=== PATIENT | female | born 1985 | race Caucasian/White ===

== ENCOUNTER 2019-06-07 19:07 | Inpatient (IN) | payer MEDICAID ==
[2019-06-07] MEDS ORDERED: Ondansetron 4 MG Tab.DIS PO PRN (20:30)
[2019-06-07] MEDS ORDERED: Zolpidem 10 MG Tab PO PRN (20:30)
[2019-06-07] MEDS ORDERED: Acetaminophen 325 MG Tab PO PRN (20:30)
--- NOTE | 2019-06-07 20:30 | PCM.LDHP ---
L&D History of Present Illness - General Date of Service: 06/07/19 Admit Problem/Dx: Admission Diagnosis/Problem Admission Diagnosis/Problem Source of Information: Patient History Limitations: Reports: No Limitations - History of Present Illness Introduction:: Patient is a 33 y/o at 36 5/7 wks who presents for concerns of worsening contractions. Present in back / hips. Not able to rest much throughout the day. 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: , Therapeutic : 3 Para: 1 LMP (Approximate): - Past Surgical History Female Surgical History: Reports: Section Social & Family History - Tobacco Use Smoking Status *Q: Former Smoker - Alcohol Use Alcohol Use History: No - Recreational Drug Use Recreational Drug Use: No H&P Review of Systems - Review of Systems: Review Of Systems: See Below General: Reports: Fatigue Pulmonary: Reports: No Symptoms Cardiovascular: Reports: No Symptoms Gastrointestinal: Reports: Abdominal Pain (contractions) Genitourinary: Reports: No Symptoms Musculoskeletal: Reports: Back Pain, Other (pelvic pain) Psychiatric: Reports: No Symptoms Neurological: Reports: No Symptoms L&D Exam - Exam Exam: See Below - OB Specific Contraction Intensity: Mild Movement: Active Heart Tones: Present Heart Tones per Min: 145 Heart Rate (FHR) Variability: Moderate (6-25 bmp) Presentation: Vertex - Gupta Score Gupta Score Cervix Position: Posterior Gupta Score Consistency: Medium Gupta Score Effacement: 51-70% Gupta Score Dilation: 1-2 cm Gupta Score 's Station: -2 Gupta Score Total: 5 - Exam General: Alert, Oriented, Cooperative Lungs: Clear to Auscultation, Normal Respiratory Effort Cardiovascular: Regular Rate, Regular Rhythm GI/Abdominal Exam: Soft, Non-Tender Genitourinary: Normal external exam Back Exam: Normal Inspection Extremities: Normal Inspection Skin: Warm, Dry, Intact - Problem List (1) 36 weeks gestation of SNOMED Code(s): 84046183 ICD Code: Z3A.36 - 36 WEEKS GESTATION OF Status: Acute Current Visit: Yes (2) History of SNOMED Code(s): 400105892 ICD Code: Z98.891 - HISTORY OF UTERINE SCAR FROM PREVIOUS SURGERY Status: Acute Current Visit: Yes (3) Gestational hypertension SNOMED Code(s): 604366715 ICD Code: O13.9 - GESTATIONAL HTN W/O SIGNIFICANT PROTEINURIA, UNSP TRIMESTER Status: Acute Current Visit: Yes Qualifiers: Trimester: third trimester Qualified Code(s): O13.3 - Gestational [ -induced] hypertension without significant proteinuria, third trimester Problem List Initiated/Reviewed/Updated: Yes Assessment/Plan Comment:: Patient with SVE similar to exam this AM. Will plan on keeping overnight for extended triage as lives several hours from [place]. Patient previously interested in TOLAC, but now less certain. Mostly worried about pain. Will given dose of Flexeril currently for discomfort. If pain continues without cervical change can consider IM morphine/phenergan. Labs done early this AM and so not to be repeated currently. Family agrees with plan. Shannan Reza MD
[2019-06-07] MEDS ORDERED: Cyclobenzaprine 10 MG Tab PO PRN (20:36)
[2019-06-07] MEDS ORDERED: Promethazine 25 MG/ML SDV IM ONE (22:40)
[2019-06-07] MEDS ORDERED: Morphine 10 MG/ML Syringe IVPUSH ONE (22:40)
[2019-06-07] MEDS ORDERED: Morphine 10 MG/ML Syringe IM ONE (23:10)
[2019-06-07] MEDS ORDERED: Morphine 4 MG/ML Syringe ONE (23:27)
[2019-06-07] MEDS ORDERED: Morphine 4 MG/ML Syringe IM ONE (23:30)
[2019-06-07] MEDS ORDERED: Morphine PF 10 MG/10 ML SDV IM ONE (23:30)
[2019-06-08] MEDS ORDERED: Metoclopramide 10 MG/2 ML SDV IVPUSH ONE (01:58)
[2019-06-08] MEDS ORDERED: Sodium Chloride 0.9% 10 ML Syringe FLUSH PRN (01:58)
[2019-06-08] MEDS ORDERED: ceFAZolin 2 GM in Premix Bag 1 BAG IV ONE (01:58)
[2019-06-08] MEDS ORDERED: Citric Acid/Sodium Citrate Solution 30 ML Cup PO ONE (01:58)
[2019-06-08] MEDS ORDERED: Nalbuphine 10 MG/1 ML Vial IVPUSH PRN (01:58)
[2019-06-08] MEDS ORDERED: Oxytocin/Lactated Ringers 10 UNIT/1,000 ML BAG IV SCH (02:00)
[2019-06-08] MEDS ORDERED: Lactated Ringers 1,000 ML IV SCH (02:00)
--- NOTE | 2019-06-08 02:03 | PCM.SN ---
- Free Text/Narrative Note: 0200 Patient with continued complaints of contractions. Appears more in early labor. Exam almost impossible given patient discomfort. Reviewed options. Does not want to do a trial of labor. Will move forward with [facility] Shannan Reza MD
--- NOTE | 2019-06-08 02:11 | PCM.OPNOTE ---
- General Post-Op/Procedure Note Date of Surgery/Procedure: 06/08/19 Operative Procedure(s): Repeat Findings: Keloid scar noted on abdomen at site of prior . Minimal scar tissue between the rectus and fascia. When attempting to enter the peritoneum it was noted there was dense adhesions between the uterus and anterior/abdominal wall along the right and also center/almost fundal region. Minimal scar tissue noted between bladder and ARIAS. Baby girl delivered from vertex presentation with APGARS of 6 & 9. Weight 6 lbs 5 oz. Uterus not able to be exteriorized. After hysterotomy closed it was noted the incision traveled is an almost diagonal fashion up towards mid position of uterus on patient's left. This was thought to have occurred due to tethering of uterus to anterior abdominal wall. Left ovary appeared normal, but not able to visualize right ovary or fallopian tube. Pre Op Diagnosis: 36 6/7 wks gestation. Early labor (change from 1 to 3 cm). Hx of prior . Declined TOLAC. Gestational HTN Post-Op Diagnosis: Same - Given findings at time of surgery would recommend early term delivery in subsequent pregnancies Anesthesia Technique: Spinal Primary Surgeon: Shannan Reza Secondary Surgeon: Bhavna Olivo Anesthesia Provider: Obdulio Junior Reason Band And Cuff Cutter Was Necessary: BMI of patient. Speed/safety of procedure Pathology: Cord blood collected. Placenta discarded. Fluid Replacement, Intraop: 1,600 Output, Urine Amount: 125 EBL in mLs: 700 Complications: None Condition: Good Free Text/Narrative:: The risks, benefits, indications, potential complications, and alternatives were explained to the patient and informed consent obtained. After induction of anesthesia, the patient was placed in a supine position and then draped and prepped in the usual sterile manner. A Pfannenstiel incision was made and carried down through the subcutaneous tissue to the fascia. Fascial incision was made and extended transversely. The fascia was from the underlying rectus tissue superiorly and inferiorly. The peritoneum was identified and entered. Peritoneal incision initially could not be extended due to dense adhesions between the uterus and anterior abdominal wall. These were taken down partially on the patient's right with sharp dissection and fundally with cautery. This allowed slightly more extension of peritoneal incision, but still somewhat tight. Cautery then used to slightly incise rectus muscles bilaterally. After this adequate amount of space thought to be had for delivery. The utero-vesical peritoneal reflection was incised transversely and the bladder flap was bluntly freed from the lower uterine segment. A transverse uterine incision was made sharply with a scalpel and extended bluntly in a cephalocaudad direction. A baby girl was delivered from a vertex presentation with APGARS as above. After the umbilical cord was clamped and cut cord blood was obtained for evaluation. The placenta was removed intact and appeared normal. The uterus was not able to be exteriorized due to adhesive disease. The uterine incision was closed with three separate running locked sutures of 0 Vicryl. As noted in findings hysterotomy did extend upward on patient's left. Area where uterus was from anterior wall somewhat abraided and this was also closed with an 0 vicryl in a figure of eight fashion. The infracolic gutters were cleared of blood clots. Bry-seal placed along incision lines. The fascia was then reapproximated with running sutures of 0 Vicryl. The subcutaneous tissue was irrigated with sterile warm normal saline, hemostasis obtained with cautery. This layer was closed with a running 0 vicryl. Patient' s prior keloid scar then excised sharply with a scalpel. The skin was reapproximated with running Subcuticular 4-0 monocryl sutures. Instrument, sponge, and needle counts were correct prior the abdominal closure and at the conclusion of the case.
[2019-06-08] MEDS ORDERED: Morphine PF 10 MG/10 ML SDV ONE (02:16)
[2019-06-08] MEDS ORDERED: Oxytocin 10 Units/1 ML SDV ONE (02:16)
[2019-06-08] MEDS ORDERED: ceFAZolin 1 GM Vial ONE (02:16)
[2019-06-08] MEDS ORDERED: ePHEDrine/Normal Saline 25 MG/5 ML Syringe ONE (03:08)
[2019-06-08] MEDS ORDERED: Ketorolac 30 MG/ML SDV ONE ×2 (03:13→22:18)
--- NOTE | 2019-06-08 03:14 | PCM.PREANE ---
Preanesthetic Assessment - Procedure Proposed Procedure: Urgent - Anesthesia/Transfusion/Family Hx Anesthesia History: Prior Anesthesia Without Reaction Family History of Anesthesia Reaction: No Transfusion History: No Prior Transfusion(s) Anesthesia/Transfusion Comment: No previous difficulties with anesthesia or with intubation per patient - Review of Systems General: No Symptoms Pulmonary: No Symptoms Cardiovascular: No Symptoms Gastrointestinal: No Symptoms Neurological: No Symptoms Other: Reports: None - Physical Assessment NPO Status Date: 06/08/19 (full stomach) ASA Class: 1E Mental Status: Alert & Oriented x3 Airway Class: Mallampati = 2 Dentition: Reports: Normal Dentition Thyro-Mental Finger Breadths: 3 Mouth Opening Finger Breadths: 3 ROM/Head Extension: Full Lungs: Clear to Auscultation, Normal Respiratory Effort Cardiovascular: Regular Rate, Regular Rhythm - Allergies Allergies/Adverse Reactions: Allergies Allergy/AdvReac Type Severity Reaction Status Date / Time No Known Allergies Allergy Verified 06/07/19 00:16 - Blood Blood Available: Yes - Anesthesia Plan Pre-Op Medication Ordered: None - Acknowledgements Anesthesia Type Planned: Spinal, MAC Pt an Appropriate Candidate for the Planned Anesthesia: Yes Alternatives and Risks of Anesthesia Discussed w Pt/Guardian: Yes Pt/Guardian Understands and Agrees with Anesthesia Plan: Yes 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: , Therapeutic - Past Surgical History Female Surgical History: Reports: Section - SUBSTANCE USE Smoking Status *Q: Former Smoker Recreational Drug Use History: No - HOME MEDS Home Medications: Home Meds Mv-Mn/Iron/FA/Herbal/Digestive [ One Tablet] 1 each PO DAILY 06/07/19 [ History] Omeprazole Magnesium [Prilosec Otc] 20 mg PO DAILY 06/07/19 [History] - CURRENT (IN HOUSE) MEDS Current Meds: Current Medications Acetaminophen (Tylenol) 650 mg PO Q4H PRN PRN Reason: Pain (mild 1-3) Cyclobenzaprine HCl (Flexeril) 10 mg PO BEDTIME PRN PRN Reason: pain Last Admin: 06/07/19 21:13 Dose: 10 mg Lactated Ringer's (Ringers, Lactated) 1,000 mls @ 125 mls/hr IV ASDIRECTED JANA Oxytocin/Lactated Ringer's (Pitocin In Lr 10 Units/1,000 Ml) 10 unit in 1,000 mls @ 100 mls/hr IV ASDIRECTED JANA; Protocol Nalbuphine HCl (Nubain) 10 mg IVPUSH Q2H PRN PRN Reason: Pain Ondansetron HCl (Zofran Odt) 4 mg PO Q4H PRN PRN Reason: Nausea/Vomiting Sodium Chloride (Saline Flush) 10 ml FLUSH ASDIRECTED PRN PRN Reason: Keep Vein Open Zolpidem Tartrate (Ambien) 10 mg PO ONETIME PRN PRN Reason: Insomnia Discontinued Medications Cefazolin Sodium (Ancef) Confirm Administered Dose 2 gm .ROUTE .STK-MED ONE Stop: 06/08/19 02:17 Citric Acid/Sodium Citrate (Bicitra Solution) 30 ml PO ONETIME ONE Stop: 06/08/19 01:59 Cefazolin Sodium/Dextrose 2 gm (/ Premix) 50 mls @ 100 mls/hr IV ONETIME ONE Stop: 06/08/19 02:27 Metoclopramide HCl (Reglan) 10 mg IVPUSH ONETIME ONE Stop: 06/08/19 01:59 Morphine Sulfate (Morphine) 8 mg IVPUSH ONETIME ONE Stop: 06/07/19 22:41 Morphine Sulfate (Morphine) 8 mg IM ONETIME ONE Stop: 06/07/19 23:11 Morphine Sulfate (Duramorph Pf) 8 mg IM ONETIME ONE Stop: 06/07/19 23:31 Morphine Sulfate (Morphine) 8 mg IM ONETIME ONE Stop: 06/07/19 23:31 Last Admin: 06/07/19 23:34 Dose: 8 mg Morphine Sulfate (Morphine) Confirm Administered Dose 4 mg .ROUTE .STK-MED ONE Stop: 06/07/19 23:28 Morphine Sulfate (Duramorph Pf) Confirm Administered Dose 10 mg .ROUTE .STK-MED ONE Stop: 06/08/19 02:17 Oxytocin (Pitocin) Confirm Administered Dose 20 unit .ROUTE .STK-MED ONE Stop: 06/08/19 02:17 Promethazine HCl (Phenergan) 12.5 mg IM ONETIME ONE Stop: 06/07/19 22:41 Last Admin: 06/07/19 23:33 Dose: 12.5 mg
[2019-06-08] MEDS ORDERED: Lidocaine 1% 2 ML ONE (03:26)
[2019-06-08] MEDS ORDERED: Ondansetron 4 MG/2 ML SDV IVPUSH PRN (03:39)
[2019-06-08] MEDS ORDERED: fentaNYL 100 MCG/2 ML SDV IVPUSH PRN (03:39)
[2019-06-08] MEDS ORDERED: diphenhydrAMINE 50 MG/ML SDV IVPUSH PRN ×3 (03:39→22:24)
--- NOTE | 2019-06-08 03:59 | PCM.POSTAN ---
POST ANESTHESIA ASSESSMENT - MENTAL STATUS Mental Status: Alert, Oriented - RESPIRATORY Respiratory Status: Respiratory Rate WNL, Airway Patent, O2 Saturation Stable - CARDIOVASCULAR CV Status: Pulse Rate WNL, Blood Pressure Stable - GASTROINTESTINAL GI Status: No Symptoms - PAIN Pain Score: 0 - POST OP HYDRATION Hydration Status: Adequate & Stable (Routine transfer with handoff to RN. No complications. No concerns at this time.)
[2019-06-08] MEDS ORDERED: ePHEDrine 50 MG/ML SDV IVPUSH PRN ×2 (05:28→22:24)
[2019-06-08] MEDS ORDERED: Dextrose 5%-Lactated Ringers 1,000 ML IV SCH (05:28)
[2019-06-08] MEDS ORDERED: Naloxone 0.4 MG/ML SDV IVPUSH PRN ×2 (05:28→22:24)
[2019-06-08] MEDS ORDERED: Acetaminophen/oxyCODONE 325-5 MG Tab PO PRN (05:28)
--- NOTE | 2019-06-08 07:34 | PCM48HPAN ---
Post Anesthesia Note - EVALUATION WITHIN 48HRS OF ANESTHETIC Vital Signs in Normal Range: Yes Patient Participated in Evaluation: Yes Respiratory Function Stable: Yes Airway Patent: Yes Cardiovascular Function Stable: Yes Hydration Status Stable: Yes Pain Control Satisfactory: Yes Nausea and Vomiting Control Satisfactory: Yes Mental Status Recovered: Yes Vital Signs: Last Vital Signs Temp 36.4 C 06/08/19 04:40 Pulse 72 06/08/19 04:40 Resp 12 06/08/19 04:40 BP 121/89 06/08/19 04:40 Pulse Ox 95 06/08/19 04:40 - COMMENTS/OBSERVATIONS Free Text/Narrative:: no anesthesia complications noted
[2019-06-08] MEDS: Ketorolac 30 MG/ML SDV IVPUSH SCH ×3 (10:15→22:21)
[2019-06-08] MEDS ORDERED: Docusate Sodium 100 MG Cap PO PRN (16:07)
[2019-06-08] MEDS ORDERED: Acetaminophen/oxyCODONE 325-5 MG Tab ONE (22:19)
[2019-06-08] MEDS: Docusate Sodium 100 MG Cap PO PRN (22:25)
[2019-06-08] MEDS: Acetaminophen/oxyCODONE 325-5 MG Tab PO PRN (22:26)
[2019-06-09] MEDS ORDERED: Ibuprofen 600 MG Tab PO PRN (04:00)
[2019-06-09] MEDS: Ibuprofen 600 MG Tab PO PRN ×3 (04:01→19:40)
[2019-06-09] MEDS: Acetaminophen/oxyCODONE 325-5 MG Tab PO PRN ×4 (04:03→21:57)
--- NOTE | 2019-06-09 08:16 | PCM.PNPP ---
- General Info Date of Service: 06/09/19 Functional Status: Reports: Pain Controlled, Tolerating Diet, Ambulating, Urinating - Review of Systems General: Reports: No Symptoms Pulmonary: Reports: No Symptoms Cardiovascular: Reports: No Symptoms Gastrointestinal: Reports: Abdominal Pain (managed with medications) Genitourinary: Reports: No Symptoms Musculoskeletal: Reports: No Symptoms Neurological: Reports: No Symptoms - Patient Data Vital Signs - Most Recent: Last Vital Signs Temp 36.8 C 06/09/19 03:56 Pulse 102 H 06/09/19 03:56 Resp 16 06/09/19 03:56 BP 133/78 06/09/19 03:56 Pulse Ox 99 06/09/19 03:56 Weight - Most Recent: 105.687 kg I&O - Last 24 Hours: Intake & Output 06/08/19 06/09/19 06/09/19 22:59 06:59 14:59 Output Total 550 270 Balance -550 -270 Lab Results - Last 24 Hours: Laboratory Results - last 24 hr 06/09/19 Range/Units 05:01 WBC 8.10 (3.98-10.04) K/mm3 RBC 3.10 L (3.98-5.22) M/mm3 Hgb 9.0 L D (11.2-15.7) gm/dl Hct 27.9 L (34.1-44.9) % MCV 90.0 (79.4-94.8) fl MCH 29.0 (25.6-32.2) pg MCHC 32.3 (32.2-35.5) g/dl RDW Std Deviation 45.9 (36.4-46.3) fL Plt Count 152 L (182-369) K/mm3 MPV 10.9 (9.4-12.3) fl Med Orders - Current: Current Medications Diphenhydramine HCl (Benadryl) 25 mg IVPUSH Q6H PRN PRN Reason: Itching or Nausea Docusate Sodium (Colace) 100 mg PO BID PRN PRN Reason: Constipation Last Admin: 06/08/19 22:25 Dose: 100 mg Ephedrine Sulfate (Ephedrine Sulfate) 5 mg IVPUSH SEECOMMENT PRN PRN Reason: Other Ibuprofen (Motrin) 600 mg PO Q6H PRN PRN Reason: mild pain or fever Last Admin: 06/09/19 04:01 Dose: 600 mg Naloxone HCl (Narcan) 0.1 mg IVPUSH SEECOMMENT PRN PRN Reason: Respiratory Depression Oxycodone/Acetaminophen (Percocet 325-5 Mg) 2 tab PO Q4H PRN PRN Reason: Pain (moderate 4-6) Last Admin: 06/09/19 04:03 Dose: 2 tab Discontinued Medications Acetaminophen (Tylenol) 650 mg PO Q4H PRN PRN Reason: Pain (mild 1-3) Cefazolin Sodium (Ancef) Confirm Administered Dose 2 gm .ROUTE .STK-MED ONE Stop: 06/08/19 02:17 Citric Acid/Sodium Citrate (Bicitra Solution) 30 ml PO ONETIME ONE Stop: 06/08/19 01:59 Last Admin: 06/08/19 05:34 Dose: Not Given Cyclobenzaprine HCl (Flexeril) 10 mg PO BEDTIME PRN PRN Reason: pain Last Admin: 06/07/19 21:13 Dose: 10 mg Diphenhydramine HCl (Benadryl) 25 mg IVPUSH Q6H PRN PRN Reason: Pruritis Diphenhydramine HCl (Benadryl) 25 mg IVPUSH Q6H PRN PRN Reason: Itching or Nausea Docusate Sodium (Colace) 100 mg PO BID PRN PRN Reason: Constipation Last Admin: 06/08/19 14:50 Dose: 100 mg Ephedrine Sulfate (Ephedrine In Ns) Confirm Administered Dose 25 mg .ROUTE .STK- MED ONE Stop: 06/08/19 03:09 Ephedrine Sulfate (Ephedrine Sulfate) 5 mg IVPUSH SEECOMMENT PRN PRN Reason: Other Fentanyl (Sublimaze) 50 mcg IVPUSH Q5M PRN PRN Reason: Pain Cefazolin Sodium/Dextrose 2 gm (/ Premix) 50 mls @ 100 mls/hr IV ONETIME ONE Stop: 06/08/19 02:27 Last Admin: 06/08/19 05:30 Dose: Not Given Lactated Ringer's (Ringers, Lactated) 1,000 mls @ 125 mls/hr IV ASDIRECTED JANA Oxytocin/Lactated Ringer's (Pitocin In Lr 10 Units/1,000 Ml) 10 unit in 1,000 mls @ 100 mls/hr IV ASDIRECTED JANA; Protocol Lidocaine HCl (Xylocaine-Mpf 1%) Confirm Administered Dose 2 mls @ as directed .ROUTE .STK-MED ONE Stop: 06/08/19 03:27 Dextrose/Lactated Ringer's (Dextrose 5%-Lactated Ringers) 1,000 mls @ 125 mls/ hr IV ASDIRECTED JANA Stop: 06/08/19 13:27 Last Admin: 06/08/19 05:39 Dose: 125 mls/hr Ibuprofen (Motrin) 600 mg PO Q6H PRN PRN Reason: mild pain or fever Ketorolac Tromethamine (Toradol) Confirm Administered Dose 30 mg .ROUTE .STK- MED ONE Stop: 06/08/19 03:14 Ketorolac Tromethamine (Toradol) 30 mg IVPUSH Q6H [facility] Stop: 06/08/19 22:01 Last Admin: 06/08/19 22:21 Dose: 30 mg Metoclopramide HCl (Reglan) 10 mg IVPUSH ONETIME ONE Stop: 06/08/19 01:59 Last Admin: 06/08/19 05:34 Dose: Not Given Morphine Sulfate (Morphine) 8 mg IVPUSH ONETIME ONE Stop: 06/07/19 22:41 Last Admin: 06/08/19 05:29 Dose: Not Given Morphine Sulfate (Morphine) 8 mg IM ONETIME ONE Stop: 06/07/19 23:11 Last Admin: 06/08/19 05:29 Dose: Not Given Morphine Sulfate (Duramorph Pf) 8 mg IM ONETIME ONE Stop: 06/07/19 23:31 Morphine Sulfate (Morphine) 8 mg IM ONETIME ONE Stop: 06/07/19 23:31 Last Admin: 06/07/19 23:34 Dose: 8 mg Morphine Sulfate (Morphine) Confirm Administered Dose 4 mg .ROUTE .STK-MED ONE Stop: 06/07/19 23:28 Last Admin: 06/08/19 05:30 Dose: Not Given Morphine Sulfate (Duramorph Pf) Confirm Administered Dose 10 mg .ROUTE .STK-MED ONE Stop: 06/08/19 02:17 Nalbuphine HCl (Nubain) 10 mg IVPUSH Q2H PRN PRN Reason: Pain Naloxone HCl (Narcan) 0.1 mg IVPUSH SEECOMMENT PRN PRN Reason: Respiratory Depression Ondansetron HCl (Zofran Odt) 4 mg PO Q4H PRN PRN Reason: Nausea/Vomiting Ondansetron HCl (Zofran) 4 mg IVPUSH ONETIME PRN PRN Reason: Nausea/Vomiting Oxycodone/Acetaminophen (Percocet 325-5 Mg) 2 tab PO Q4H PRN PRN Reason: Pain (moderate 4-6) Last Admin: 06/08/19 14:49 Dose: 2 tab Oxytocin (Pitocin) Confirm Administered Dose 20 unit .ROUTE .STK-MED ONE Stop: 06/08/19 02:17 Promethazine HCl (Phenergan) 12.5 mg IM ONETIME ONE Stop: 06/07/19 22:41 Last Admin: 06/07/19 23:33 Dose: 12.5 mg Sodium Chloride (Saline Flush) 10 ml FLUSH ASDIRECTED PRN PRN Reason: Keep Vein Open Zolpidem Tartrate (Ambien) 10 mg PO ONETIME PRN PRN Reason: Insomnia - Interaction Disposition, : [place] in Room with Family Interaction: Holding Infant Feeding: Attempted ; Nursed Fair/Poor Support Person: , Significant Other - Recovery Exam Fundal Tone: Firm Fundal Level: 1 Fingerbreadths Below Umbilicus Fundal Placement: Midline Lochia Amount: Small Lochia Color: Serosa/Frost Perineum Description: Intact, Minimal Bruising/Swelling Episiotomy/Laceration: None Bladder Status: Voiding Urinary Elimination: Voided - Exam General: Alert, Oriented, Cooperative Lungs: Clear to Auscultation, Normal Respiratory Effort Cardiovascular: Regular Rate, Regular Rhythm GI/Abdominal Exam: Soft, Tender (appropriate post op ) Extremities: Normal Inspection Skin: Warm, Dry, Intact Wound/Incisions: Healing Well, No Drainage - Problem List & Annotations (1) 36 weeks gestation of SNOMED Code(s): 01729960 Code(s): Z3A.36 - 36 WEEKS GESTATION OF Status: Acute Current Visit: Yes (2) History of SNOMED Code(s): 484827011 Code(s): Z98.891 - HISTORY OF UTERINE SCAR FROM PREVIOUS SURGERY Status: Acute Current Visit: Yes (3) Gestational hypertension SNOMED Code(s): 072236522 Code(s): O13.9 - GESTATIONAL HTN W/O SIGNIFICANT PROTEINURIA, UNSP TRIMESTER Status: Acute Current Visit: Yes Qualifiers: Trimester: third trimester Qualified Code(s): O13.3 - Gestational [ -induced] hypertension without significant proteinuria, third trimester (4) S/P repeat low transverse SNOMED Code(s): 896138286, 87089249, 792773844, 869532045, 365770559 Code(s): Z98.891 - HISTORY OF UTERINE SCAR FROM PREVIOUS SURGERY Status: Acute Current Visit: Yes - Problem List Review Problem List Initiated/Reviewed/Updated: Yes - My Orders Last 24 Hours: My Active Orders 06/08/19 22:23 Acetaminophen/oxyCODONE [Percocet 325-5 MG] 2 tab PO Q4H PRN 06/08/19 22:24 Docusate Sodium [Colace] 100 mg PO BID PRN Ibuprofen [Motrin] 600 mg PO Q6H PRN Naloxone [Narcan] 0.1 mg IVPUSH SEECOMMENT PRN diphenhydrAMINE [Benadryl] 25 mg IVPUSH Q6H PRN ePHEDrine [ePHEDrine sulfate] 5 mg IVPUSH SEECOMMENT PRN - Assessment Assessment:: POD#1 from [facility] - Plan Plan:: * Routine cares * Breast feeding * Monitor BP's closely * Discharge home in 1-2 days
[2019-06-09] MEDS: Docusate Sodium 100 MG Cap PO PRN (12:36)
[2019-06-09] MEDS ORDERED: Acetaminophen/oxyCODONE 325-5 MG Tab PO PRN (15:14)
[2019-06-10] MEDS: Acetaminophen/oxyCODONE 325-5 MG Tab PO PRN ×2 (02:22→07:20)
[2019-06-10] MEDS: Docusate Sodium 100 MG Cap PO PRN (02:24)
[2019-06-10] MEDS: Ibuprofen 600 MG Tab PO PRN ×2 (02:41→09:45)
--- NOTE | 2019-06-10 09:08 | PCM.DCSUM1 ---
Discharge Summary - Discharge Data Discharge Date: 06/10/19 Discharge Disposition: Home, Self-Care 01 Condition: Good - Referral to Home Health Primary Care Physician: Shannan Reza MD - Discharge Diagnosis/Problem(s) (1) 36 weeks gestation of SNOMED Code(s): 46865566 ICD Code: Z3A.36 - 36 WEEKS GESTATION OF Status: Acute (2) History of SNOMED Code(s): 338300475 ICD Code: Z98.891 - HISTORY OF UTERINE SCAR FROM PREVIOUS SURGERY Status: Acute (3) Gestational hypertension SNOMED Code(s): 165406257 ICD Code: O13.9 - GESTATIONAL HTN W/O SIGNIFICANT PROTEINURIA, UNSP TRIMESTER Status: Acute Qualifiers: Trimester: third trimester Qualified Code(s): O13.3 - Gestational [ -induced] hypertension without significant proteinuria, third trimester (4) S/P repeat low transverse SNOMED Code(s): 624889931, 86365006, [id number], 669392494, 288690806 ICD Code: Z98.891 - HISTORY OF UTERINE SCAR FROM PREVIOUS SURGERY Status: Acute - Patient Summary/Data Operative Procedure(s) Performed: Repeat Complications: None Consults: None Recommended Follow-up Testing/Procedures: Follow up in 1 week for BP check and incision check Hospital Course: 33 y/o admitted at 36 5/7 wks for concerns of early labor. Did eventually make cervical change and declined TOLAC. Taken for repeat which was notable for extensive adhesive disease. See operative note. Post op did well and was meeting all goals by POD#2 and requested discharge home. Of note, also known to have gestational HTN. BP's remained stable throughout admission. - Patient Instructions Diet: Regular Diet as Tolerated Activity: No Lifting Over 10 Pounds Activity, Other: Pelvic Rest for 6 weeks Driving: Do Not Drive (While taking narcotics ) Showering/Bathing: May Shower, No Tub Bathing/Swimming Wound/Incision Care: Keep Operative Site/Wound Site Clean and Dry Notify Provider of: Fever, Increased Pain, Swelling and Redness, Drainage, Nausea and/or Vomiting - Discharge Plan *PRESCRIPTION DRUG MONITORING PROGRAM REVIEWED*: No *COPY OF PRESCRIPTION DRUG MONITORING REPORT IN PATIENT DEJAH: No Prescriptions/Med Rec: Acetaminophen/oxyCODONE [Percocet 325-5 MG] 1 - 2 tab PO Q6H PRN #20 tablet PRN Reason: Pain (Moderate 4-6) Home Medications: Home Meds Mv-Mn/Iron/FA/Herbal/Digestive [ One Tablet] 1 each PO DAILY 06/07/19 [ History] Acetaminophen/oxyCODONE [Percocet 325-5 MG] 1 - 2 tab PO Q6H PRN #20 tablet 12/21 [Rx] Docusate Sodium [Colace] 100 mg PO BID PRN cap 06/09/19 [Rx] Ibuprofen [Motrin] 600 mg PO Q6H PRN tablet 06/09/19 [Rx] Patient Handouts: and Self-Care, Care After Delivery Referrals: Shannan Reza MD [Primary Care Provider] - (1 week for post op check ) - Discharge Summary/Plan Comment DC Time >30 min.: No - Patient Data Vitals - Most Recent: Last Vital Signs Temp 37.3 C 06/10/19 03:00 Pulse 99 06/10/19 03:00 Resp 16 06/10/19 03:00 BP 134/84 06/10/19 03:00 Pulse Ox 98 06/10/19 03:00 Weight - Most Recent: 105.687 kg I&O - Last 24 hours: Intake & Output 06/09/19 06/10/19 06/10/19 22:59 06:59 14:59 Output Total 500 Balance -500 Med Orders - Current: Current Medications Diphenhydramine HCl (Benadryl) 25 mg IVPUSH Q6H PRN PRN Reason: Itching or Nausea Docusate Sodium (Colace) 100 mg PO BID PRN PRN Reason: Constipation Last Admin: 06/10/19 02:24 Dose: 100 mg Ephedrine Sulfate (Ephedrine Sulfate) 5 mg IVPUSH SEECOMMENT PRN PRN Reason: Other Ibuprofen (Motrin) 600 mg PO Q6H PRN PRN Reason: mild pain or fever Last Admin: 06/10/19 02:41 Dose: 600 mg Naloxone HCl (Narcan) 0.1 mg IVPUSH SEECOMMENT PRN PRN Reason: Respiratory Depression Oxycodone/Acetaminophen (Percocet 325-5 Mg) 2 tab PO Q4H PRN PRN Reason: Pain (severe 7-10) Last Admin: 06/10/19 07:20 Dose: 2 tab Oxycodone/Acetaminophen (Percocet 325-5 Mg) 1 tab PO Q4H PRN PRN Reason: Pain (moderate 4-6) Discontinued Medications Acetaminophen (Tylenol) 650 mg PO Q4H PRN PRN Reason: Pain (mild 1-3) Cefazolin Sodium (Ancef) Confirm Administered Dose 2 gm .ROUTE .STK-MED ONE Stop: 06/08/19 02:17 Citric Acid/Sodium Citrate (Bicitra Solution) 30 ml PO ONETIME ONE Stop: 06/08/19 01:59 Last Admin: 06/08/19 05:34 Dose: Not Given Cyclobenzaprine HCl (Flexeril) 10 mg PO BEDTIME PRN PRN Reason: pain Last Admin: 06/07/19 21:13 Dose: 10 mg Diphenhydramine HCl (Benadryl) 25 mg IVPUSH Q6H PRN PRN Reason: Pruritis Diphenhydramine HCl (Benadryl) 25 mg IVPUSH Q6H PRN PRN Reason: Itching or Nausea Docusate Sodium (Colace) 100 mg PO BID PRN PRN Reason: Constipation Last Admin: 06/08/19 14:50 Dose: 100 mg Ephedrine Sulfate (Ephedrine In Ns) Confirm Administered Dose 25 mg .ROUTE .STK- MED ONE Stop: 06/08/19 03:09 Ephedrine Sulfate (Ephedrine Sulfate) 5 mg IVPUSH SEECOMMENT PRN PRN Reason: Other Fentanyl (Sublimaze) 50 mcg IVPUSH Q5M PRN PRN Reason: Pain Cefazolin Sodium/Dextrose 2 gm (/ Premix) 50 mls @ 100 mls/hr IV ONETIME ONE Stop: 06/08/19 02:27 Last Admin: 06/08/19 05:30 Dose: Not Given Lactated Ringer's (Ringers, Lactated) 1,000 mls @ 125 mls/hr IV ASDIRECTED JANA Oxytocin/Lactated Ringer's (Pitocin In Lr 10 Units/1,000 Ml) 10 unit in 1,000 mls @ 100 mls/hr IV ASDIRECTED JANA; Protocol Lidocaine HCl (Xylocaine-Mpf 1%) Confirm Administered Dose 2 mls @ as directed .ROUTE .STK-MED ONE Stop: 06/08/19 03:27 Dextrose/Lactated Ringer's (Dextrose 5%-Lactated Ringers) 1,000 mls @ 125 mls/ hr IV ASDIRECTED [facility] Stop: 06/08/19 13:27 Last Admin: 06/08/19 05:39 Dose: 125 mls/hr Ibuprofen (Motrin) 600 mg PO Q6H PRN PRN Reason: mild pain or fever Ketorolac Tromethamine (Toradol) Confirm Administered Dose 30 mg .ROUTE .STK- MED ONE Stop: 06/08/19 03:14 Ketorolac Tromethamine (Toradol) 30 mg IVPUSH Q6H [facility] Stop: 06/08/19 22:01 Last Admin: 06/08/19 22:21 Dose: 30 mg Ketorolac Tromethamine (Toradol) Confirm Administered Dose 30 mg .ROUTE .STK- MED ONE Stop: 06/08/19 22:19 Last Admin: 06/09/19 13:08 Dose: Not Given Metoclopramide HCl (Reglan) 10 mg IVPUSH ONETIME ONE Stop: 06/08/19 01:59 Last Admin: 06/08/19 05:34 Dose: Not Given Morphine Sulfate (Morphine) 8 mg IVPUSH ONETIME ONE Stop: 06/07/19 22:41 Last Admin: 06/08/19 05:29 Dose: Not Given Morphine Sulfate (Morphine) 8 mg IM ONETIME ONE Stop: 06/07/19 23:11 Last Admin: 06/08/19 05:29 Dose: Not Given Morphine Sulfate (Duramorph Pf) 8 mg IM ONETIME ONE Stop: 06/07/19 23:31 Morphine Sulfate (Morphine) 8 mg IM ONETIME ONE Stop: 06/07/19 23:31 Last Admin: 06/07/19 23:34 Dose: 8 mg Morphine Sulfate (Morphine) Confirm Administered Dose 4 mg .ROUTE .STK-MED ONE Stop: 06/07/19 23:28 Last Admin: 06/08/19 05:30 Dose: Not Given Morphine Sulfate (Duramorph Pf) Confirm Administered Dose 10 mg .ROUTE .STK-MED ONE Stop: 06/08/19 02:17 Nalbuphine HCl (Nubain) 10 mg IVPUSH Q2H PRN PRN Reason: Pain Naloxone HCl (Narcan) 0.1 mg IVPUSH SEECOMMENT PRN PRN Reason: Respiratory Depression Ondansetron HCl (Zofran Odt) 4 mg PO Q4H PRN PRN Reason: Nausea/Vomiting Ondansetron HCl (Zofran) 4 mg IVPUSH ONETIME PRN PRN Reason: Nausea/Vomiting Oxycodone/Acetaminophen (Percocet 325-5 Mg) 2 tab PO Q4H PRN PRN Reason: Pain (moderate 4-6) Last Admin: 06/08/19 14:49 Dose: 2 tab Oxycodone/Acetaminophen (Percocet 325-5 Mg) Confirm Administered Dose 2 tab .ROUTE .STK-MED ONE Stop: 06/08/19 22:20 Last Admin: 06/09/19 13:09 Dose: Not Given Oxytocin (Pitocin) Confirm Administered Dose 20 unit .ROUTE .STK-MED ONE Stop: 06/08/19 02:17 Promethazine HCl (Phenergan) 12.5 mg IM ONETIME ONE Stop: 06/07/19 22:41 Last Admin: 06/07/19 23:33 Dose: 12.5 mg Sodium Chloride (Saline Flush) 10 ml FLUSH ASDIRECTED PRN PRN Reason: Keep Vein Open Zolpidem Tartrate (Ambien) 10 mg PO ONETIME PRN PRN Reason: Insomnia
== END 2019-06-10 11:45 | disposition home or self-care (01) | DRG 788 ==
LOC: JD.OBCHECK 19:07 → JD.OB 19:21 → JD.OBCHECK 06-08 01:59 → JD.MS 06-08 01:59 → JD.OB 06-08 02:00 → UNDODISIN 06-08 02:00
PROVIDERS: ADMIT Obstetrics & Gynecology; ATTEND Obstetrics & Gynecology
PROC: 10D00Z1 Extraction of Products of Conception, Low, Open Approach (ICD-10-PCS; principal; 2019-06-08)
DX: O34.211 Maternal care for low transverse scar from previous cesarean delivery (principal); O13.4 Gestational [pregnancy-induced] hypertension without significant proteinuria, complicating childbirth; Z37.0 Single live birth; Z3A.36 36 weeks gestation of pregnancy; Z87.891 Personal history of nicotine dependence
CPT/HCPCS: 01961; 36415; 59025; 85027; 86850; 86900; 86901; A9270-GY; J0690; J1885; J2001; J2270; J2550; J2590; J7042; J7050